=== PATIENT | female | born 1985 | race Caucasian/White ===

== ENCOUNTER → 2021-01-22 | Outpatient (REF) | payer BC | LOC: M SFHCWAGY 15:01 | PROVIDERS: ATTEND Nurse Practitioner Women's Health | DX: Z12.4 Encounter for screening for malignant neoplasm of cervix (principal) ==

== ENCOUNTER → 2023-10-08 | Outpatient (REF) | payer BC ==
[2023-10-13 18:48] LABS: HEPATITIS B CORE ANTIBODY IGM NEGATIVE (NEGATIVE); HEPATITIS C VIRUS ABY INDEX 0.07 INDEX (<0.8)
== END ==
LOC: M LAB REF 11:34
PROVIDERS: ATTEND Nurse Practitioner Adult Health
DX: R74.8 Abnormal levels of other serum enzymes (principal)

== ENCOUNTER → 2023-10-08 | Outpatient (REF) | LOC: M RAD 11:02 | PROVIDERS: ATTEND Nurse Practitioner Adult Health | DX: Z02.89 Encounter for other administrative examinations (principal) ==

== ENCOUNTER → 2023-11-17 | Outpatient (REF) ==
[2023-11-17 12:07] LABS: RSV AMPLIFICATION NEGATIVE (NEGATIVE)
== END ==
LOC: M EMP 08:38
PROVIDERS: ATTEND Family Medicine
DX: Z20.09 Contact with and (suspected) exposure to other intestinal infectious diseases (principal)

== ENCOUNTER → 2024-06-17 | Outpatient (REF) | payer BC ==
[2024-06-17 19:16] LABS: HEMATOCRIT 37.1 % (36.0-47.0)
[2024-06-17 19:22] LABS: PERCENT SATURATION 39.8 % (13.2-45.0)
[2024-06-17 19:24] LABS: FERRITIN 680.8 NG/ML (7.3-270.7)
[2024-06-21 14:28] LABS: ANA SCREEN, IFA NEGATIVE (NEGATIVE)
== END ==
LOC: M LAB REF 17:38
PROVIDERS: ATTEND Nurse Practitioner Adult Health
DX: R74.01 Elevation of levels of liver transaminase levels (principal)

== ENCOUNTER → 2024-06-22 | Outpatient (CLI) | payer BC | LOC: M LAB 14:29 | PROVIDERS: ATTEND Nurse Practitioner Adult Health | DX: R74.01 Elevation of levels of liver transaminase levels (principal) ==

== ENCOUNTER → 2024-07-21 | Outpatient (CLI) | payer BC | LOC: M RAD 09:01 | PROVIDERS: ATTEND Nurse Practitioner Adult Health | DX: R94.5 Abnormal results of liver function studies (principal) ==